=== PATIENT | female | born 1940 | race Two or more races ===

== ENCOUNTER 2022-11-06 15:03 | Emergency (ER) | payer OTHER ==
[~2022-11-06] VITALS: Ht 149.9 cm; Wt 58.5 kg
[2022-11-06] MEDS ORDERED: METOPROLOL SUCC25 MG PO (15:27)
[2022-11-06] MEDS ORDERED: OSEL75CA PO ×2 (18:11→18:26)
== END 2022-11-06 18:31 | disposition home or self-care (01) ==
LOC: ER 15:03
DX: J10.1 Influenza due to other identified influenza virus with other respiratory manifestations (principal); Z20.822 Contact with and (suspected) exposure to COVID-19